=== PATIENT | female | born 1945 | race Two or more races ===

== ENCOUNTER 2019-02-22 08:58 | Outpatient (CLI) | payer OTHER | END 2019-02-22 09:04 | disposition home or self-care (01) | LOC: RAD 08:58 | DX: M46.47 Discitis, unspecified, lumbosacral region (principal); M19.90 Unspecified osteoarthritis, unspecified site ==

== ENCOUNTER → 2019-11-23 | Outpatient (CLI) | payer OTHER | END | disposition home or self-care (01) | LOC: RAD 09:00 → TOM 09:00 → RAD 09:14 | DX: M12.89 Other specific arthropathies, not elsewhere classified, multiple sites (principal); M46.47 Discitis, unspecified, lumbosacral region; R51 Headache; R41.2 Retrograde amnesia ==

== ENCOUNTER 2020-08-31 13:24 | Outpatient (CLI) | payer OTHER | END 2020-08-31 13:31 | disposition home or self-care (01) | LOC: MRI 13:24 | PROVIDERS: ATTEND Internal Medicine Cardiovascular Disease | DX: M12.88 Other specific arthropathies, not elsewhere classified, other specified site (principal); M46.47 Discitis, unspecified, lumbosacral region | CPT/HCPCS: 72148 ==

== ENCOUNTER 2021-10-10 10:52 | Outpatient (CLI) | payer OTHER | END 2021-10-10 11:05 | disposition home or self-care (01) | LOC: MAMO-SONO 10:52 → NUCLEAR 13:30 | PROVIDERS: ATTEND Internal Medicine Cardiovascular Disease | DX: R92.0 Mammographic microcalcification found on diagnostic imaging of breast (principal); Z12.31 Encounter for screening mammogram for malignant neoplasm of breast; N64.59 Other signs and symptoms in breast ==

== ENCOUNTER 2021-10-12 10:50 | Emergency (ER) | payer OTHER ==
[~2021-10-12] VITALS: Ht 152.4 cm; Wt 72.6 kg
[2021-10-12] MEDS ORDERED: EVISTA60 MG (11:02)
[2021-10-12] MEDS ORDERED: ZETIA10 MG (11:04)
== END 2021-10-12 18:34 | disposition home or self-care (01) ==
LOC: ER 10:50
DX: T17.228A Food in pharynx causing other injury, initial encounter (principal); R13.19 Other dysphagia; X58.XXXA Exposure to other specified factors, initial encounter; Y93.89 Activity, other specified; Y92.89 Other specified places as the place of occurrence of the external cause; Y99.8 Other external cause status

== ENCOUNTER 2022-03-11 08:02 | Outpatient (CLI) | payer OTHER ==
[~2022-03-11 08:02] MED LIST: EVISTA60 MG; ZETIA10 MG
== END 2022-03-11 08:11 | disposition home or self-care (01) ==
LOC: MAMO-SONO 08:02
PROVIDERS: ATTEND Internal Medicine Cardiovascular Disease
DX: N63.11 Unspecified lump in the right breast, upper outer quadrant (principal)

== ENCOUNTER → 2023-11-21 08:25 | Outpatient (CLI) | payer OTHER ==
[2023-11-21 09:13] LABS: HEMATOCRIT 40.1 % (36.0-45.00); HEMOGLOBIN 13.1 g/dL (12.0-15.00); MEAN CORPUSCULAR HEMOGLOBIN 26.1 pg (27.00-32.0); MEAN CORPUSCULAR HGB CONC 32.6 g/dl (32.0-36.0); PLATELET COUNT 231 K/uL (150-450); RED BLOOD COUNT 5.02 M/uL (4.00-6.00); RED CELL DISTRIBUTION WIDTH 13.8 % (11.5-14.5)
[2023-11-21 09:25] LABS: PH,URINE 6.5 (5.0-8.0); URINE APPEARANCE Clear; URINE BILIRRUBIN Negative (NEGATIVE); URINE BLOOD Negative; URINE COLOR Yellow; URINE GLUCOSE Negative (NEGATIVE); URINE LEUKOCYTE Trace; URINE NITRATE Negative; URINE PROTEIN Negative (NEGATIVE); URINE UROBILINOGEN 0.2 E.U./dl
[2023-11-21 09:26] LABS: URINE BACTERIA 99.4 uL (0.0-1933); URINE EPITHELIAL CELLS 6.4 uL (0.0-38.8); URINE WBC 6.9 uL (0.0-23.2)
[2023-11-21 09:39] LABS: ALBUMIN 3.7 gm/dL (3.4-5.0); BILIRUBIN TOTAL 0.5 mg/dL (0.3-1.2); CALCIUM 9.8 mg/dL (8.5-10.1); CREATININE SERUM 0.62 mg/dL (0.55-1.02); GFR 93.34; GLOBULINA 3.9 G/DL (2.4-3.5); POTASSIUM 4.58 mEq/L (3.5-5.1); TOTAL PROTEIN 7.6 gm/dL (6.4-8.2)
== END | disposition home or self-care (01) ==
LOC: LAB 08:25
PROVIDERS: ATTEND Urology
DX: E11.9 Type 2 diabetes mellitus without complications (principal)

== ENCOUNTER 2023-11-21 09:14 | Outpatient (CLI) | payer OTHER | END 2023-11-21 09:31 | disposition home or self-care (01) | LOC: SONOGRAMA 09:14 | PROVIDERS: ATTEND Urology | DX: N39.0 Urinary tract infection, site not specified (principal) ==

== ENCOUNTER 2024-02-06 07:39 | Outpatient (CLI) | payer OTHER ==
[2024-02-06 09:03] LABS: BILIRUBIN TOTAL 0.37 mg/dL (0.3-1.2); CALCIUM 9.9 mg/dL (8.5-10.1); CREATININE SERUM 0.63 mg/dL (0.55-1.02); GFR 91.63; GLOBULINA 3.7 G/DL (2.4-3.5); TOTAL PROTEIN 7.7 gm/dL (6.4-8.2)
== END 2024-02-06 07:40 | disposition home or self-care (01) ==
LOC: LAB 07:39
DX: I65.23 Occlusion and stenosis of bilateral carotid arteries (principal)

== ENCOUNTER 2024-02-09 07:54 | Outpatient (CLI) | payer OTHER | END 2024-02-09 07:57 | disposition home or self-care (01) | LOC: MRI 07:54 | PROVIDERS: ATTEND Internal Medicine | DX: I65.23 Occlusion and stenosis of bilateral carotid arteries (principal) | CPT/HCPCS: 70553; Q9965; 70549 ==